=== PATIENT | female | born 1970 | race Caucasian/White ===

== ENCOUNTER → 2016-09-01 | Outpatient (CLI) | payer BC ==
--- NOTE | 2016-09-02 10:11 | XR ---
EXAMINATION TYPE: XR ribs LT w pa chest xray DATE OF EXAM: 09/01/2016 2:53 PM COMPARISON: 08/24/2013 HISTORY: Left-sided chest pain TECHNIQUE: Frontal view of the chest and multiple views of the left ribs are submitted. FINDINGS: No sizable pneumothorax. Lungs are clear. IMPRESSION: 1. No acute process.
== END | disposition home or self-care (01) ==
LOC: RADXRYALE 14:40
PROVIDERS: ATTEND Internal Medicine
DX: S23.41XA Sprain of ribs, initial encounter (principal)

== ENCOUNTER → 2017-02-20 | Outpatient (CLI) | payer BC ==
--- NOTE | 2017-02-20 11:25 | USB ---
EXAMINATION TYPE: US breast limited BILAT DATE OF EXAM: 02/20/2017 COMPARISON: Diagnostic mammogram performed the same date. CLINICAL HISTORY: N64.4 BREAST PAIN, BILATERAL. Targeted bilateral ultrasound was performed in the area of pain reported by the patient from the 12:0 0 to 3:00 position in the left breast as well as the axillary tail and retroareolar region and the 9: 00 to 12:00 position in the right breast as well as the retroareolar and axillary regions. No suspicious sonographic abnormality is appreciated. No solid or cystic masses are seen. Few promine nt retroareolar ducts are noted without filling defect. IMPRESSION: Benign finding-no sonographic evidence of malignancy. Annual screening mammography is re commended.
--- NOTE | 2017-02-20 11:38 | MM ---
Reason for exam: additional evaluation requested from prior study. Last mammogram was performed 3 years and 1 month ago. History: Took hormonal contraceptives for 10 years. Physical Findings: Nurse did not find any significant physical abnormalities on exam. MG 3D Diag Mammo W/Cad JOSE RAFAEL Bilateral CC and MLO view(s) were taken. Prior study comparison: January 31, 2014, bilateral MG screening mammo w CAD. October 03, 2011, bilateral digital screening mammo w/CAD. The breast tissue is heterogeneously dense. This may lower the sensitivity of mammography. These results were verbally communicated with the patient and result sheet given to the patient on 02/20/17. ASSESSMENT: Incomplete: need additional imaging evaluation, BI-RAD 0 RECOMMENDATION: Ultrasound of both breasts. (areas of pain)
== END | disposition home or self-care (01) ==
LOC: RADMAMWWP 09:58
PROVIDERS: ATTEND Internal Medicine
DX: R92.8 Other abnormal and inconclusive findings on diagnostic imaging of breast (principal); N64.4 Mastodynia
CPT/HCPCS: 76642; G0204; G0279

== ENCOUNTER → 2017-12-29 | Outpatient (CLI) | payer BC ==
--- NOTE | 2017-12-29 20:49 | CONS ---
CONSULTATION REASON FOR CONSULTATION: Excessive daytime sleepiness. This is a 47-year-old, may a female patient presenting to me for sleep evaluation. The patient reports that she has always been having problem with her sleep. Her condition apparently has been getting progressively worse. She feels restless and she snores and she quits breathing at night. Most recently she is acting out in dreams and she is having terrible nightmares. Per history, the patient has chronic anxiety and she has been taking Ativan recently she has used Xanax in the past for anxiety and recently this has been switched to Ativan 1 mg that she takes at bedtime. She also has overactive bladder which has been an ongoing problem. She used to get up at least 10-15 times in the middle of night to urinate and she put out only a small amount of urine output. She has undergone a bladder augmentation surgery back in 2004 and since then she has been aroused less from sleep before urination approximately 5-6 times per night. As such, reported her sleep quality is very poor at baseline. In addition, she is snoring and she has a report to quit breathing. At times, she has had sleep paralysis and nightmares have been quite excessive recently. For that reason, she decided to come in for further evaluation. Denies having any sensation in the lower extremities. No symptoms of restless legs syndrome. Although she is restless at night and she has been told to occasionally act out in her dreams. She does not drink alcohol. She has no history of substance abuse. She has a history of depression along with anxiety and the patient has been maintained on a combination of citalopram and Ativan as mentioned. Excessive social stressors including a son who has recovered from substance abuse. The has history of alcoholism. She works for [employer] in [place] and she has been there for the past 18 years. She does not fall asleep during day-to-day activities and she has not fallen asleep while driving. PAST MEDICAL HISTORY: 1. Generalized anxiety disorder. 2. Depression. 3. Hypertension. 4. Overactive bladder. PAST SURGICAL HISTORY: Includes bladder augmentation, eye surgery and ear surgery. DRUG ALLERGIES: Not known. OUTPATIENT MEDICATION LIST: Includes Ativan 1 mg at bedtime. Lisinopril 20 mg p.o. daily. Citalopram 40 mg p.o. daily and oxybutynin 10 mg 1 tablet a day. SOCIAL HISTORY: Nonsmoker. No history of alcohol. No history of IV drugs. FAMILY HISTORY: Noncontributory. Her has alcohol history and son has history of substance abuse. REVIEW OF SYMPTOMS: 12-point review of system was done. Positive findings are mentioned above history of present illness. No hallucinations. No cataplexy. No grinding of the teeth. No history of insomnia at this point. No sleepwalking or palpitation. PHYSICAL EXAMINATION: BP is 159/96, pulse 74, respirations 16, temp 97.8. Saturation 98% on room air. Weight is 170. Height is 5.0. BMI 33.2. Brant[place] score is a 5. Neck size 14 inches. General appearance: Calm and comfortable. Head is atraumatic, normocephalic. NECK: Supple. There is no JVD. No goiter or neck masses. Mallampati class IV. LUNGS: Clear to auscultation. HEART: Sounds regular rate and rhythm. Normal S1, S2. No S3, no S4. No murmurs. ABDOMEN: Soft, nontender. No organomegaly. EXTREMITIES: No edema. No cyanosis or clubbing. NEUROLOGIC: Alert and oriented x3. There is no focal neurological deficits. PSYCHIATRIC: Negative for anxiety or depression. IMPRESSION: 1. Poor sleep quality under investigation. The patient has multiple comorbidities and I suspect an underlying component of insomnia in addition to possible obstructive sleep apnea. Other comorbidities including overactive bladder, depression, anxiety are probably contributing to her poor sleep quality in general. This is to be further investigated. Currently she is excessively fatigued and sleepy during the day. 2. Chronic hypersomnia under investigation. 3. Chronic anxiety. 4. History of depression. 5. History of overactive bladder. 6. Sleep paralysis. 7. Nightmares. 8. Acting out on dreams. PLAN: 1. Implement good sleep hygiene measures were discussed with the patient at length. 2. Continue Ativan at bedtime for sleep induction and maintenance as the patient has excessive amount of anxiety that prevents her from going to sleep without Ativan. 3. Continue citalopram. 4. Oxybutynin for overactive bladder. 5. Proceed with a screening polysomnogram looking for any other pathology contributing to her poor sleep quality. 6. We will continue to follow and make further recommendations accordingly. MMODL / IJN: [id number] /
== END | disposition home or self-care (01) ==
LOC: SLEEP 14:59
PROVIDERS: ATTEND Internal Medicine Critical Care Medicine
DX: G47.10 Hypersomnia, unspecified (principal); R53.83 Other fatigue; F41.9 Anxiety disorder, unspecified; F32.9 Major depressive disorder, single episode, unspecified; N32.81 Overactive bladder; G47.53 Recurrent isolated sleep paralysis; F51.5 Nightmare disorder; Z79.899 Other long term (current) drug therapy
CPT/HCPCS: 99211

== ENCOUNTER → 2018-06-08 | Outpatient (CLI) | payer BC ==
--- NOTE | 2018-06-08 19:36 | PN ---
PROGRESS NOTE Thi is a 47-year-old female patient with severe obstructive sleep apnea with an AHI of 40. The patient initially presented to me with poor sleep quality. She had multiple comorbidities and I suspected insomnia in addition to obstructive sleep apnea. However, the sleep study did not show any insomnia, and the patient was able to generate and maintain sleep. Her sleep quality was poor related to severe JACK with an AHI of 40. She was offered CPAP therapy, which is currently at 11 cm of water. She reports marked improvement in her sleep quality and she is sleeping much better. She is averaging more than 7 hours of sleep every night. She has no difficulties in initiating and maintaining sleep for now. I checked her compliancy data. I noted the patient is benefitting from the treatment. The patient is utilizing her CPAP machine every night. Her compliancy for more than 4 hours is 100%. Her average CPAP use is around 9.6 hours per night. Her leak factor is 22 L/minute and her AHI while on treatment is down to 9.1. I reviewed the CPAP titration. I noted that the maximum pressure achieved during titration was 12. Her current [place] score is also at 12. REVIEW OF SYSTEMS: Twelve-point review of system was done. Positive findings are all mentioned above in the history of present illness. Her sleep quality has improved. Her chronic tiredness and sleepiness have improved. She has chronic anxiety and depression. No nausea or vomiting. No abdominal pain. No chest pain. No shortness of breath. No palpitations. No swelling in the lower extremities. No open wounds or sores. No ulcerations. No falls. No headache, dizziness or loss of consciousness. PHYSICAL EXAMINATION: BP is 122/81, pulse 68, respirations 16, temperature 98, saturation 96% on room air. Weight is 172. GENERAL APPEARANCE: Calm, comfortable. Head is atraumatic, normocephalic. NECK: Supple. There is no JVD. No goiter or neck masses. LUNGS: Diminished; otherwise clear. HEART: Heart sounds are regular rate and rhythm. Normal S1, S2. No S3, S4. No murmurs. ABDOMEN: Soft, nontender. No organomegaly. EXTREMITIES: No edema. No cyanosis or clubbing. NEUROLOGIC: The patient is alert and oriented x3. No focal neurological deficit. PSYCH: Negative for any PTSD, anxiety or depression at this point in time. IMPRESSION: 1. Severe obstructive sleep apnea with an apnea/hypopnea index of 40. The patient is being treated with CPAP therapy at a pressure of 11 and the patient continues to benefit from the treatment with marked improvement in sleep quality in general. 2. Sleep fragmentation, improved with CPAP therapy. 3. Chronic tiredness and sleepiness, improved with CPAP therapy. [place] score is down to 12. 4. Chronic anxiety/depression. 5. History of sleeptalking, inactive for now. 6. Overactive bladder. 7. Nightmares, inactive for now. PLAN: 1. Increase the CPAP pressure to 12 cm of water. We will try to achieve an AHI of less than 5 by increasing the pressure. 2. Continue CPAP therapy. I offered her the DreamWear nose mask, which will be an alternative mask to use. 3. Encourage weight loss. 4. See me back in 6 months' time. Would like to achieve an AHI of less than 5, and for that reason the CPAP pressure was increased arbitrarily to a pressure of 12 cm of water. We will continue to follow. MMJANEE / CORIEN: [id number] /
== END | disposition home or self-care (01) ==
LOC: SLEEP 14:53
PROVIDERS: ATTEND Internal Medicine Critical Care Medicine
DX: G47.33 Obstructive sleep apnea (adult) (pediatric) (principal); F41.9 Anxiety disorder, unspecified; F32.9 Major depressive disorder, single episode, unspecified; N32.81 Overactive bladder; F51.5 Nightmare disorder; R53.82 Chronic fatigue, unspecified; Z99.89 Dependence on other enabling machines and devices

== ENCOUNTER 2019-08-26 20:44 | Observation (INO) | payer BC ==
[2019-08-26] MEDS ORDERED: SODIUM CHLORIDE 0.9% 1,000 ML IV STA ×3 (21:10→23:39)
[2019-08-26] MEDS ORDERED: LORazepam 2 MG/ML INJ IV STA (21:10)
[2019-08-26] MEDS ORDERED: ONDANSETRON 4 MG/2 ML VIAL IVP STA (21:10)
--- NOTE | 2019-08-26 21:10 | ED ---
Anxiety HPI - General Chief Complaint: Anxiety Stated Complaint: Anxiety Time Seen by Provider: 08/26/19 20:57 Source: patient, RN notes reviewed, old records reviewed Mode of arrival: EMS Limitations: altered mental status - History of Present Illness Initial Comments: This is a 48-year-old female DF for evaluation patient is a for evaluation of inability to move. Patient had some anxiety prior to arrival was playing with the dog presented by EMS for evaluation and admits to not feeling well. Patient states she is still does not feel well she feels lightheaded dizzy short of breath MD Complaint: anxiety -: hour(s) Symptoms: palpitations Place: home Previous History of Same: Yes Severity: moderate Quality: intermittent Provoking factors: none known Improves With: nothing Worsens With: nothing Associated symptoms: palpitations - Related Data Home Medications: Home Medications Medication Instructions Recorded Confirmed Citalopram Hydrobromide 40 mg PO DAILY 10/18/15 10/18/15 [Citalopram HBr] LORazepam [Ativan] 1 mg PO BID 10/18/15 10/18/15 Oxybutynin Chloride [Ditropan XL] 10 mg PO DAILY 10/18/15 10/18/15 Previous Rx's Medication Instructions Recorded Ciprofloxacin HCl [Cipro] 500 mg PO Q12HR #14 tablet 10/18/15 Ondansetron Odt [Zofran ODT] 4 mg PO Q8HR PRN #20 tab 10/18/15 Phenazopyridine [Pyridium] 100 mg PO TID #9 tablet 10/18/15 Allergies/Adverse Reactions: Allergies Allergy/AdvReac Type Severity Reaction Status Date / Time No Known Allergies Allergy Verified 10/18/15 01:53 Review of Systems ROS Statement: Those systems with pertinent positive or pertinent negative responses have been documented in the HPI. ROS Other: All systems not noted in ROS Statement are negative. Past Medical History Additional Past Medical History / Comment(s): bladder disease History of Any Multi-Drug Resistant Organisms: None Reported Past Surgical History: Bowel Resection, Tonsillectomy Additional Past Surgical History / Comment(s): bladder, Past Psychological History: Anxiety Smoking Status: Never smoker Past Alcohol Use History: None Reported Past Drug Use History: None Reported General Exam Limitations: no limitations General appearance: alert, anxious, in distress Head exam: Present: atraumatic, normocephalic, normal inspection Eye exam: Present: normal appearance, PERRL, EOMI. Absent: scleral icterus, conjunctival injection, periorbital swelling ENT exam: Present: normal exam, mucous membranes moist Neck exam: Present: normal inspection. Absent: tenderness, meningismus, lymphadenopathy Respiratory exam: Present: normal lung sounds bilaterally. Absent: respiratory distress, wheezes, rales, rhonchi, stridor Cardiovascular Exam: Present: normal rhythm, tachycardia, normal heart sounds. Absent: systolic murmur, diastolic murmur, rubs, gallop, clicks GI/Abdominal exam: Present: soft, normal bowel sounds. Absent: distended, tenderness, guarding, rebound, rigid Extremities exam: Present: normal inspection, full ROM, normal capillary refill. Absent: tenderness, pedal edema, joint swelling, calf tenderness Back exam: Present: normal inspection Neurological exam: Present: alert, oriented X3, CN II-XII intact Psychiatric exam: Present: normal affect, normal mood Skin exam: Present: warm, dry, intact, normal color. Absent: rash Course Vital Signs 08/26/19 08/26/19 08/26/19 20:50 22:05 23:00 Temperature 98.2 F Pulse Rate 125 H 106 H 97 Respiratory 18 18 18 Rate Blood Pressure 139/91 123/80 111/74 O2 Sat by Pulse 97 96 95 Oximetry - Reevaluation(s) Reevaluation #1: 08/26/19 23:42 Medical Records reviewed Reevaluation #2: 08/26/19 23:43 Patient currently denying any significant pain with feels not well physical heart racing and she feels like something is wrong - Consultations Consultation #1: Spoke with Sound her agreeable for observation Medical Decision Making - Medical Decision Making 48 female DF for evaluation anxiety attack recent doesn't mild troponin leak [place] for trending of troponin anxiety management - Lab Data Result diagrams: 08/26/19 21:10 08/26/19 21:10 Lab Results 08/26/19 08/26/19 08/26/19 Range/Units 21:10 21:10 21:10 WBC 7.4 (3.8-10.6) k/uL RBC 4.78 (3.80-5.40) m/uL Hgb 13.6 (11.4-16.0) gm/dL Hct 41.0 (34.0-46.0) % MCV 85.7 (80.0-100.0) fL MCH 28.4 (25.0-35.0) pg MCHC 33.1 (31.0-37.0) g/dL RDW 13.6 (11.5-15.5) % Plt Count 189 (150-450) k/uL Neutrophils % 63 % Lymphocytes % 29 % Monocytes % 5 % Eosinophils % 2 % Basophils % 0 % Neutrophils # 4.7 (1.3-7.7) k/uL Lymphocytes # 2.1 (1.0-4.8) k/uL Monocytes # 0.4 (0-1.0) k/uL Eosinophils # 0.1 (0-0.7) k/uL Basophils # 0.0 (0-0.2) k/uL Sodium 135 L (137-145) mmol/L Potassium 5.2 H (3.5-5.1) mmol/L Chloride 101 (98-107) mmol/L Carbon Dioxide 27 (22-30) mmol/L Anion Gap 7 mmol/L BUN 16 (7-17) mg/dL Creatinine 0.70 (0.52-1.04) mg/dL Est GFR (CKD-EPI)AfAm >90 (>60 ml/min/1.73 sqM) Est GFR (CKD-EPI)NonAf >90 (>60 ml/min/1.73 sqM) Glucose 156 H (74-99) mg/dL Plasma Lactic Acid Aung 1.8 (0.7-2.0) mmol/L Calcium 8.5 (8.4-10.2) mg/dL Phosphorus 3.1 (2.5-4.5) mg/dL Magnesium 2.0 (1.6-2.3) mg/dL Total Bilirubin 0.9 (0.2-1.3) mg/dL AST 42 H (14-36) U/L ALT 16 (4-34) U/L Alkaline Phosphatase 77 (38-126) U/L Troponin I (0.000-0.034) ng/mL Total Protein 7.5 (6.3-8.2) g/dL Albumin 4.2 (3.5-5.0) g/dL Urine Color Urine Appearance (Clear) Urine pH (5.0-8.0) Ur Specific Mcn[place] (1.001-1.035) Urine Protein (Negative) Urine Glucose (UA) (Negative) Urine Ketones (Negative) Urine Blood (Negative) Urine Nitrite (Negative) Urine Bilirubin (Negative) Urine Urobilinogen (<2.0) mg/dL Ur Leukocyte Esterase (Negative) Urine RBC (0-5) /hpf Urine WBC (0-5) /hpf Ur Squamous Epith Cells (0-4) /hpf Urine Bacteria (None) /hpf Urine Mucus (None) /hpf 08/26/19 08/26/19 Range/Units 21:10 22:00 WBC (3.8-10.6) k/uL RBC (3.80-5.40) m/uL Hgb (11.4-16.0) gm/dL Hct (34.0-46.0) % MCV (80.0-100.0) fL MCH (25.0-35.0) pg MCHC (31.0-37.0) g/dL RDW (11.5-15.5) % Plt Count (150-450) k/uL Neutrophils % % Lymphocytes % % Monocytes % % Eosinophils % % Basophils % % Neutrophils # (1.3-7.7) k/uL Lymphocytes # (1.0-4.8) k/uL Monocytes # (0-1.0) k/uL Eosinophils # (0-0.7) k/uL Basophils # (0-0.2) k/uL Sodium (137-145) mmol/L Potassium (3.5-5.1) mmol/L Chloride (98-107) mmol/L Carbon Dioxide (22-30) mmol/L Anion Gap mmol/L BUN (7-17) mg/dL Creatinine (0.52-1.04) mg/dL Est GFR (CKD-EPI)AfAm (>60 ml/min/1.73 sqM) Est GFR (CKD-EPI)NonAf (>60 ml/min/1.73 sqM) Glucose (74-99) mg/dL Plasma Lactic Acid Aung (0.7-2.0) mmol/L Calcium (8.4-10.2) mg/dL Phosphorus (2.5-4.5) mg/dL Magnesium (1.6-2.3) mg/dL Total Bilirubin (0.2-1.3) mg/dL AST (14-36) U/L ALT (4-34) U/L Alkaline Phosphatase (38-126) U/L Troponin I 0.014 (0.000-0.034) ng/mL Total Protein (6.3-8.2) g/dL Albumin (3.5-5.0) g/dL Urine Color Light Yellow Urine Appearance Clear (Clear) Urine pH 7.0 (5.0-8.0) Ur Specific [place] 1.011 (1.001-1.035) Urine Protein Negative (Negative) Urine Glucose (UA) Negative (Negative) Urine Ketones Negative (Negative) Urine Blood Negative (Negative) Urine Nitrite Negative (Negative) Urine Bilirubin Negative (Negative) Urine Urobilinogen <2.0 (<2.0) mg/dL Ur Leukocyte Esterase Large H (Negative) Urine RBC 1 (0-5) /hpf Urine WBC 24 H (0-5) /hpf Ur Squamous Epith Cells 1 (0-4) /hpf Urine Bacteria Rare H (None) /hpf Urine Mucus Rare H (None) /hpf - EKG Data -: EKG Interpreted by Me (EKG shows sinus tachycardia rate of 107, IA 172, QRS 90, QTc 448) - Radiology Data Radiology results: report reviewed (Chest x-ray is negative for acute disease), image reviewed Disposition Clinical Impression: Acute anxiety, Elevated troponin Disposition: ADMITTED IP TO THIS [facility] Condition: Good Instructions (If sedation given, give patient instructions): Generalized Anxiety Disorder (ED) Is patient prescribed a controlled substance at d/c from ED?: No Referrals: Adeline Cee MD [Primary Care Provider] - 1-2 days
[2019-08-26 21:30] LABS: Basophils % (A) 0 %; Eosinophils # (A) 0.1 k/uL (0-0.7); Eosinophils % (A) 2 %; HGB 13.6 gm/dL (11.4-16.0); Lymphocytes # (A) 2.1 k/uL (1.0-4.8); Lymphocytes % (A) 29 %; MCH 28.4 pg (25.0-35.0); MCHC 33.1 g/dL (31.0-37.0); MCV 85.7 fL (80.0-100.0); Mean Platelet Volume 9.2; Monocytes # (A) 0.4 k/uL (0-1.0); Monocytes % (A) 5 %; Neutrophils # (A) 4.7 k/uL (1.3-7.7); Neutrophils % (A) 63 %; Platelet Count 189 k/uL (150-450); RBC 4.78 m/uL (3.80-5.40); RDW 13.6 % (11.5-15.5); WBC 7.4 k/uL (3.8-10.6)
[2019-08-26 21:40] LABS: ALT 16 U/L (4-34); AST 42 U/L (14-36); African American GFR (CKD) >90 (>60 ml/min/1.73 sqM); Albumin 4.2 g/dL (3.5-5.0); Alkaline Phosphatase 77 U/L (38-126); Anion Gap 7 mmol/L; Blood Urea Nitrogen 16 mg/dL (7-17); Calcium 8.5 mg/dL (8.4-10.2); Carbon Dioxide 27 mmol/L (22-30); Chloride 101 mmol/L (98-107); Glucose 156 mg/dL (74-99); Non-African American GFR(CKD) >90 (>60 ml/min/1.73 sqM); Phosphorus 3.1 mg/dL (2.5-4.5); Sodium 135 mmol/L (137-145); Total Bilirubin 0.9 mg/dL (0.2-1.3); Total Protein 7.5 g/dL (6.3-8.2)
[2019-08-26 21:50] LABS: Potassium 5.2 mmol/L (3.5-5.1)
[2019-08-26 22:24] LABS: Appearance,Urine Clear (Clear); Bacteria,Urine Rare /hpf; Bilirubin,Urine Negative (Negative); Blood,Urine Negative (Negative); Color,Urine Light Yellow; Glucose,Urine (UA) Negative (Negative); Ketones,Urine Negative (Negative); Leukocyte Esterase,Urine Large (Negative); Mucus,Urine Rare /hpf; Nitrite,Urine Negative (Negative); Protein,Urine Negative (Negative); RBC,Urine 1 /hpf (0-5); Specific Gravity,Urine 1.011 (1.001-1.035); Squamous Epithelial Cell,Urine 1 /hpf (0-4); Urobilinogen,Urine <2.0 mg/dL (<2.0); WBC,Urine 24 /hpf (0-5)
--- NOTE | 2019-08-26 22:27 | XR ---
EXAMINATION TYPE: XR chest 2V DATE OF EXAM: 08/26/2019 COMPARISON: Chest x-ray 09/01/2016 HISTORY: Weakness TECHNIQUE: FINDINGS: Heart and mediastinum are normal. Lungs are clear. Diaphragm is normal. There are chest carmenza ds. Bony thorax is intact. IMPRESSION: Normal chest. No change.
--- NOTE | 2019-08-26 22:52 | CT ---
EXAMINATION TYPE: CT brain wo con DATE OF EXAM: 08/26/2019 COMPARISON: 08/24/2013 HISTORY: dizzy CT DLP: 1060.4 mGycm Automated exposure control for dose reduction was used. Multiple axial sections were obtained of the brain without contrast. Ventricles and sulci appear normal. There is no mass effect nor midline shift. There is no sign of in tracranial hemorrhage. Calvarium is intact. There is no evidence of cerebral edema. IMPRESSION: Normal head CT scan. There is clearing of left maxillary sinusitis compared to old exam.
[2019-08-26] MEDS ORDERED: LORazepam 2 MG/ML INJ IV PRN (23:39)
[2019-08-26] MEDS ORDERED: ASPIRIN 81 MG PO STA (23:39)
[2019-08-26] MEDS ORDERED: NITROGLYCERIN SL TABS 0.4 MG TAB SUBLINGUAL PRN (23:39)
[2019-08-26] MEDS ORDERED: SODIUM CHLORIDE 0.9% 1,000 ML IV SCH (23:45)
[2019-08-27 04:16] LABS: Cholesterol 154 mg/dL (<200); HDL Cholesterol 33 mg/dL (40-60); LDL Cholesterol,Calculated 105 mg/dL (0-99); Triglycerides 80 mg/dL (<150)
[2019-08-27 08:26] VITALS: BP 120/74; PULSE 76; RESP 20; TEMP 97.8
[2019-08-27] MEDS ORDERED: ATORVASTATIN 80 MG TAB PO SCH (09:00)
[2019-08-27] MEDS ORDERED: ASPIRIN 325 MG TAB PO SCH (09:00)
--- NOTE | 2019-08-27 10:14 | P.HPIM ---
History of Present Illness patient left AGAINST MEDICAL ADVICE because of her family issues even before the chance to see the patient Past Medical History Additional Past Medical History / Comment(s): bladder disease History of Any Multi-Drug Resistant Organisms: None Reported Past Surgical History: Bowel Resection, Tonsillectomy Additional Past Surgical History / Comment(s): bladder, Past Psychological History: Anxiety Smoking Status: Never smoker Past Alcohol Use History: None Reported Past Drug Use History: None Reported Medications and Allergies Home Medications Medication Instructions Recorded Confirmed Type Ciprofloxacin HCl [Cipro] 500 mg PO Q12HR #14 tablet 10/18/15 Rx Citalopram Hydrobromide 40 mg PO DAILY 10/18/15 10/18/15 History [Citalopram HBr] LORazepam [Ativan] 1 mg PO BID 10/18/15 10/18/15 History Ondansetron Odt [Zofran ODT] 4 mg PO Q8HR PRN #20 tab 10/18/15 Rx Oxybutynin Chloride [Ditropan XL] 10 mg PO DAILY 10/18/15 10/18/15 History Phenazopyridine [Pyridium] 100 mg PO TID #9 tablet 10/18/15 Rx Allergies Allergy/AdvReac Type Severity Reaction Status Date / Time No Known Allergies Allergy Verified 10/18/15 01:53 Physical Exam Vitals: Vital Signs Temp Pulse Pulse Resp BP BP Pulse Ox 08/27/19 07:00 97.8 F 76 20 120/74 98 08/27/19 01:10 97.6 F 87 16 112/75 95 08/27/19 00:32 90 18 120/77 08/26/19 23:00 97 18 111/74 95 08/26/19 22:05 106 H 18 123/80 96 08/26/19 20:50 98.2 F 125 H 18 139/91 97 Intake and Output 08/26/19 08/27/19 08/27/19 22:59 06:59 14:59 Other: Weight 72.575 kg 72.575 kg Results CBC & Chem 7: 08/26/19 21:10 08/26/19 21:10 Labs: Abnormal Lab Results - Last 24 Hours (Table) 08/26/19 08/26/19 08/27/19 Range/Units 21:10 22:00 03:49 Sodium 135 L (137-145) mmol/L Potassium 5.2 H (3.5-5.1) mmol/L Glucose 156 H (74-99) mg/dL AST 42 H (14-36) U/L LDL Cholesterol, Calc 105 H (0-99) mg/dL HDL Cholesterol 33 L (40-60) mg/dL Ur Leukocyte Esterase Large H (Negative) Urine WBC 24 H (0-5) /hpf Urine Bacteria Rare H (None) /hpf Urine Mucus Rare H (None) /hpf Microbiology - Last 24 Hours (Table) 08/26/19 22:00 Urine Culture - Preliminary Urine,Voided Thrombosis Risk Factor Assmnt - Choose All That Apply Any of the Below Risk Factors Present?: Yes Each Factor Represents 1 point: Age 41-60 years, Obesity (BMI >25) Other Risk Factors: No Thrombosis Risk Factor Assessment Total Risk Factor Score: 2 Thrombosis Risk Factor Assessment Level: Low Risk
--- NOTE | 2019-08-27 10:15 | P.DS ---
Providers Date of admission: 08/26/19 23:39 Attending physician: Dilip Arroyo Primary care physician: Adeline Cee [place] [facility] Course: patient left AMA Patient Condition at Discharge: Good Plan - Discharge Summary New Discharge Prescriptions: No Action Citalopram Hydrobromide [Citalopram HBr] 40 mg PO DAILY Oxybutynin Chloride [Ditropan XL] 10 mg PO DAILY LORazepam [Ativan] 1 mg PO BID Ciprofloxacin HCl [Cipro] 500 mg PO Q12HR #14 tablet Ondansetron Odt [Zofran ODT] 4 mg PO Q8HR PRN #20 tab PRN Reason: Nausea Phenazopyridine [Pyridium] 100 mg PO TID #9 tablet Discharge Medication List Ciprofloxacin HCl [Cipro] 500 mg PO Q12HR #14 tablet 10/18/15 [Rx] Citalopram Hydrobromide [Citalopram HBr] 40 mg PO DAILY 10/18/15 [History] LORazepam [Ativan] 1 mg PO BID 10/18/15 [History] Ondansetron Odt [Zofran ODT] 4 mg PO Q8HR PRN #20 tab 10/18/15 [Rx] Oxybutynin Chloride [Ditropan XL] 10 mg PO DAILY 10/18/15 [History] Phenazopyridine [Pyridium] 100 mg PO TID #9 tablet 10/18/15 [Rx] Follow up Appointment(s)/Referral(s): Adeline Cee MD [Primary Care Provider] - 1-2 days Patient Instructions/Handouts: Generalized Anxiety Disorder (ED) Discharge Disposition: Left Against Medical Advice
== END 2019-08-27 09:50 | disposition left against medical advice (07) ==
LOC: EC 20:44 → 6NMEDSUR 23:39
PROVIDERS: ADMIT Hospitalist; ATTEND Hospitalist
DX: F41.9 Anxiety disorder, unspecified (principal); R79.89 Other specified abnormal findings of blood chemistry; R00.2 Palpitations; Z79.899 Other long term (current) drug therapy; Z79.2 Long term (current) use of antibiotics; Z53.29 Procedure and treatment not carried out because of patient's decision for other reasons
CPT/HCPCS: 96374; 96375; 99285; 36415; 93005; 80061; 80053; 83605; 83735; 84100; 84484 ×2; 85025; 81001; 87086; 71046; 70450; G0378; J2060; J2405